=== PATIENT | female | born 1950 | race Caucasian/White ===

== ENCOUNTER → 2017-01-23 | Outpatient (CLI) | payer OTHER ==
[~2017-01-23] MED LIST: ASPIRIN E.C. 8181 MG PO; ATIVAN 0.50.5 MG/TAB PO; CARAFATE 1GM1 G PO; CLIMARA TD; LOPRESSOR 225 MG/TAB PO; MAG-OX 400400 MG/TAB PO; MIRALAX PA17 GM/Dose PO; MULTAQ400 MG PO; MULTI VITAMINS1 TAB PO; NEURONTIN600 MG/TAB PO; OXY IR5 MG PO; PEPCID 20MG TAB20 MG PO; PROBIOTIC FORMU1 CAP PO; PROTONIX 40MG T40 MG PO; ROBAXIN 75750 MG/TAB PO; ROXICODONE 55 MG/TAB PO; SENNA8.6 MG PO; TIKOSYN0.5 MG PO; TOPROL XL 25MG25 MG PO; VALTREX 50500 MG/TAB PO; VITAMIN B COMPL1 T16 PO; XARELTO20 MG PO; Z-BEC1 TAB PO; [UNRECOGNIZED DRUG - OTHER]
== END ==
LOC: MC.RAD 09:46
DX: Z12.31 Encounter for screening mammogram for malignant neoplasm of breast (principal)

== ENCOUNTER → 2018-09-19 | Outpatient (CLI) | payer OTHER | LOC: MC.RAD 09:28 | DX: Z12.31 Encounter for screening mammogram for malignant neoplasm of breast (principal) ==

== ENCOUNTER → 2019-10-31 | Outpatient (CLI) | payer MEDICARE | LOC: MC.RAD 11:14 | DX: Z12.31 Encounter for screening mammogram for malignant neoplasm of breast (principal) ==

== ENCOUNTER → 2022-03-27 | Outpatient (CLI) | payer MEDICARE | LOC: MC.RAD 12:48 | DX: R92.8 Other abnormal and inconclusive findings on diagnostic imaging of breast (principal) ==

== ENCOUNTER → 2022-12-04 | Outpatient (CLI) | payer MEDICARE | LOC: COL.RAD 09:00 | DX: M70.62 Trochanteric bursitis, left hip (principal) | CPT/HCPCS: J0665; J3301; Q9967 ==

== ENCOUNTER → 2023-03-05 | Outpatient (CLI) | payer MEDICARE ==
[~2023-03-05] MED LIST changes: +HCTZ 25MG TAB25 MG PO; +MASON NATURAL2000 IU PO; +PRAVACHOL 20MG20 MG PO; +PREVACID 30MG30 M1 PO
== END ==
LOC: COL.RAD 12:40
DX: M25.552 Pain in left hip (principal)
CPT/HCPCS: J0665; J3301; Q9967

== ENCOUNTER 2023-12-11 09:49 | Emergency (ER) | payer MEDICARE ==
[~2023-12-11] VITALS: Ht 167.6 cm; Wt 88.2 kg
[2023-12-11 10:12] VITALS: TEMP 98.9
[2023-12-11] MEDS ORDERED: NS 1,000 ML IV ONE ×2 (10:45→12:30)
[2023-12-11] MEDS ORDERED: Ondansetron 4 MG/2 ML VIAL IV PRN (10:45)
[2023-12-11] MEDS ORDERED: Loperamide 2 MG CAP PO ONE (10:45)
[2023-12-11 11:28] LABS: BASO # 0.1 K/mm3 (0.0-0.2); BASO % 0.5 % (0.0-2.0); EOS % 0.3 % (0.0-4.0); GRAN # 10.4 K/mm3 (1.4-6.5); GRAN % 81.5 % (42.2-75.2); LYMPH # 0.8 K/mm3 (1.2-3.4); LYMPH % 6.3 % (20.0-51.0); MEAN CELL VOLUME 95 fl (80.0-100.0); MEAN CORPUSCULAR HEMOGLOBIN 34 pg (27-31); MEAN CORPUSCULAR HGB CONC 36 g/dl (33.0-37.0); MEAN PLATELET VOLUME 9.8 fl (7.4-10.4); MONO # 1.4 K/mm3 (0.1-0.6); MONO % 11.1 % (1.7-9.3); PLATELET COUNT 233 K/mm3 (130-400); RED BLOOD COUNT 5.36 M/mm3 (4.10-5.30); REDCELL DISTRIBUTION WIDTH-CV 14.2 % (11.5-14.5)
[2023-12-11 11:30] LABS: HEMOGLOBIN 18.1 g/dl (12.5-16.0)
[2023-12-11 11:49] LABS: ALBUMIN 3.4 g/dL (3.4-4.8); BILIRUBIN,TOTAL 0.4 mg/dL (0.2-1.2); CALCIUM 9.6 mg/dL (8.4-10.2); CREATININE, serum 0.84 mg/dL (0.57-1.11); POTASSIUM 3.6 mEq/L (3.5-4.5); TOTAL PROTEIN 7.1 g/dl (6.2-8.1)
[2023-12-11 14:07] VITALS: BP 129/60; PULSE 81
== END 2023-12-11 14:08 | disposition home or self-care (01) ==
LOC: COL.ER 09:49
PROVIDERS: Personal Emergency Response Attendant
DX: E86.0 Dehydration (principal); R19.7 Diarrhea, unspecified; F17.200 Nicotine dependence, unspecified, uncomplicated
CPT/HCPCS: J7030